=== PATIENT | male | born 1945 | race Caucasian/White ===

== ENCOUNTER → 2016-09-13 | Outpatient (CLI) | payer OTHER | LOC: RAD 08:40 | DX: R10.12 Left upper quadrant pain (principal); R19.02 Left upper quadrant abdominal swelling, mass and lump | CPT/HCPCS: Q9967 ==

== ENCOUNTER → 2016-11-27 | Day surgery (SDC) | payer OTHER | LOC: MSO 08:17 | DX: K29.80 Duodenitis without bleeding (principal); R10.13 Epigastric pain; R10.12 Left upper quadrant pain; E78.5 Hyperlipidemia, unspecified; K21.9 Gastro-esophageal reflux disease without esophagitis; Z86.73 Personal history of transient ischemic attack (TIA), and cerebral infarction without residual deficits; Z86.718 Personal history of other venous thrombosis and embolism; Z79.01 Long term (current) use of anticoagulants; F17.220 Nicotine dependence, chewing tobacco, uncomplicated | CPT/HCPCS: 00740; J7120 ==

== ENCOUNTER 2017-05-16 15:45 | Emergency (ER) | payer OTHER ==
[~2017-05-16] VITALS: Ht 165.1 cm; Wt 161.6 kg
[2017-05-16] MEDS ORDERED: NEURONTIN300 M1 PO (16:17)
[2017-05-16] MEDS ORDERED: NORCO 325 MG-7.1 TAB PO (16:17)
[2017-05-16] MEDS ORDERED: LEVOFLOXACIN750 MG PO (16:17)
[2017-05-16] MEDS ORDERED: COUMADIN 77.5 MG/TAB PO (16:17)
[2017-05-16] MEDS ORDERED: MINOCYCLINE HC100 MG PO (16:18)
[2017-05-16] MEDS ORDERED: CYCLOBENZAPRINE10 M1 PO (16:18)
[2017-05-16] MEDS ORDERED: FUROSEMIDE40 MG (16:18)
[2017-05-16] MEDS ORDERED: LOVASTATIN10 M1 PO (16:18)
[2017-05-16 18:19] LABS: BUN/CREATININE RATIO 23.2 (6.0-26.0); CALCIUM 8.7 mg/dL (8.4-10.2); POTASSIUM 4.2 mmol/L (3.6-5.0)
[2017-05-16 18:20] LABS: EOS # 0.1 (0.04-0.40); EOS % 0.6 % (0.0-4.0); HEMATOCRIT 46.3 % (42.0-52.0); LYMPH# 1.1 (1.50-4.00); MEAN CELL VOLUME 89 fl (78-100); MEAN CORPUSCULAR HEMOGLOBIN 29 pg (27-31); MEAN CORPUSCULAR HGB CONC 32 g/dL (33-37); MEAN PLATELET VOLUME 10.2 fl (7.4-10.4); NEU # 6.9 (1.40-6.50); PLATELET COUNT 156 K/mm3 (130-400); RED BLOOD COUNT 5.19 M/mm3 (4.20-5.60); RED CELL DISTRIBUTION WIDTH 13.7 % (11.5-14.5)
[2017-05-16 19:09] VITALS: BP 173/91
== END 2017-05-16 19:10 | disposition home or self-care (01) ==
LOC: ED 15:45
PROVIDERS: Nurse Practitioner Primary Care
DX: I87.2 Venous insufficiency (chronic) (peripheral) (principal); I25.10 Atherosclerotic heart disease of native coronary artery without angina pectoris; F17.200 Nicotine dependence, unspecified, uncomplicated; Z79.01 Long term (current) use of anticoagulants; E78.00 Pure hypercholesterolemia, unspecified; Z88.1 Allergy status to other antibiotic agents; Z88.0 Allergy status to penicillin; Z88.2 Allergy status to sulfonamides

== ENCOUNTER 2018-04-19 15:25 | Observation (INO) | payer OTHER ==
[~2018-04-19] VITALS: Ht 12.7 cm; Wt 158.1 kg
[~2018-04-19 15:25] MED LIST: COUMADIN 1010 MG/TAB PO; CYCLOBENZAPRINE10 M1 PO; FUROSEMIDE40 MG; LEVOFLOXACIN750 MG PO; LOVASTATIN10 M1 PO; MINOCYCLINE HC100 MG PO; NEURONTIN300 M1 PO; NORCO 325 MG-7.1 TAB PO
[2018-04-19 16:17] LABS: EOS % 0.5 % (0.0-4.0); HEMATOCRIT 53.5 % (42.0-52.0); HEMOGLOBIN 16.3 g/dL (13.5-18.0); LYMPH# 1.4 (1.50-4.00); MEAN CELL VOLUME 96 fl (78-100); MEAN CORPUSCULAR HEMOGLOBIN 29 pg (27-31); MEAN CORPUSCULAR HGB CONC 31 g/dL (33-37); MEAN PLATELET VOLUME 10.7 fl (7.4-10.4); MONO # 0.9 (0.20-0.80); NEU # 5.7 (1.40-6.50); PLATELET COUNT 164 K/mm3 (130-400)
[2018-04-19 16:34] LABS: ALBUMIN 3.6 g/dL (3.5-5.0); CALCIUM 8.8 mg/dL (8.4-10.2); POTASSIUM 4.9 mmol/L (3.6-5.0); TOTAL BILIRUBIN 1.4 mg/dL (0.2-1.3); TOTAL PROTEIN 6.9 g/dL (6.3-8.2)
[2018-04-19] MEDS ORDERED: VITAMIN D33000 UNIT PO (18:22)
[2018-04-19] MEDS ORDERED: SAXENDA3 MG/0.5 M SQ (18:23)
[2018-04-19] MEDS ORDERED: LOVASTATIN10 M1 PO (18:23)
[2018-04-19 19:49] LABS: PROTHROMBIN TIME 29.1 SECONDS (9.0-12.0)
[2018-04-19 20:55] LABS: URINE APPEARANCE HAZY; URINE BILIRUBIN NEGATIVE (NEGATIVE); URINE COLOR YELLOW; URINE GLUCOSE NEGATIVE (NEGATIVE); URINE KETONE NEGATIVE (NEGATIVE); URINE NITRATE NEGATIVE (NEGATIVE); URINE PROTEIN(semi-quant) 2+ mg/dL (NEGATIVE); URINE UROBILINOGEN NORMAL (NORMAL)
[2018-04-19 20:56] LABS: URINE BLOOD TRACE (NEGATIVE); URINE LEUKOCYTE ESTERASE NEGATIVE (NEGATIVE)
[2018-04-19 20:57] LABS: URINE MUCUS PRESENT (NOT PRESENT)
[2018-04-19 22:28] VITALS: BP 109/66
[2018-04-19 23:30] VITALS: BP 116/61
[2018-04-20] MEDS ORDERED: COUMADIN 1010 MG/TAB PO ×2 (01:02→01:03)
[2018-04-20 03:41] VITALS: BP 117/74
[2018-04-20 06:22] VITALS: BP 133/97
[2018-04-20 08:01] LABS: CALCIUM 8.3 mg/dL (8.4-10.2); POTASSIUM 4.5 mmol/L (3.6-5.0)
[2018-04-20 08:32] LABS: HEMOGLOBIN 16.2 g/dL (13.5-18.0); MEAN CELL VOLUME 96 fl (78-100); MEAN CORPUSCULAR HEMOGLOBIN 29 pg (27-31); MEAN CORPUSCULAR HGB CONC 30 g/dL (33-37); MEAN PLATELET VOLUME 11.1 fl (7.4-10.4); PLATELET COUNT 137 K/mm3 (130-400); RED BLOOD COUNT 5.64 M/mm3 (4.20-5.60); RED CELL DISTRIBUTION WIDTH 15.2 % (11.5-14.5); WHITE BLOOD COUNT 9.2 K/mm3 (4.8-10.8)
[2018-04-20 08:54] LABS: LYMPHOCYTE 21 % (20-51); MONOCYTE 9 % (3-10); NEUTROPHILS 70 % (42-75)
[2018-04-20 11:19] VITALS: BP 166/99
[2018-04-20] MEDS ORDERED: PANTOPRAZOLE SO40 MG PO (12:43)
[2018-04-20 13:29] VITALS: BP 139/78
== END 2018-04-20 15:09 | disposition short-term general hospital (02) ==
LOC: ED 15:25 → MED/SURG 21:32
PROVIDERS: Nurse Practitioner Primary Care; ADMIT Family Medicine
DX: J96.20 Acute and chronic respiratory failure, unspecified whether with hypoxia or hypercapnia (principal); E66.2 Morbid (severe) obesity with alveolar hypoventilation; I25.10 Atherosclerotic heart disease of native coronary artery without angina pectoris; I82.409 Acute embolism and thrombosis of unspecified deep veins of unspecified lower extremity; M17.0 Bilateral primary osteoarthritis of knee; M86.671 Other chronic osteomyelitis, right ankle and foot; F17.290 Nicotine dependence, other tobacco product, uncomplicated; R44.2 Other hallucinations; Z90.49 Acquired absence of other specified parts of digestive tract; Z79.01 Long term (current) use of anticoagulants
CPT/HCPCS: A4216; G0378; J0456; J0696; J1940; J7050

== ENCOUNTER 2018-12-08 11:43 | Emergency (ER) | payer OTHER ==
[~2018-12-08] VITALS: Wt 157.1 kg
[~2018-12-08 11:43] MED LIST changes: +PANTOPRAZOLE SO40 MG PO; +SAXENDA3 MG/0.5 M SQ; +VITAMIN D33000 UNIT PO
[2018-12-08 12:24] LABS: EOS # 0.1 (0.04-0.40); EOS % 1.3 % (0.0-4.0); HEMOGLOBIN 15.3 g/dL (13.5-18.0); LYMPH# 1.3 (1.50-4.00); MEAN CELL VOLUME 100 fl (78-100); MEAN CORPUSCULAR HEMOGLOBIN 29 pg (27-31); MEAN PLATELET VOLUME 10.7 fl (7.4-10.4); MONO # 0.7 (0.20-0.80); NEU # 5.5 (1.40-6.50); PLATELET COUNT 143 K/mm3 (130-400); RED CELL DISTRIBUTION WIDTH 15.4 % (11.5-14.5); WHITE BLOOD COUNT 7.7 K/mm3 (4.8-10.8)
[2018-12-08 12:29] LABS: MEAN CORPUSCULAR HGB CONC 29 g/dL (33-37)
[2018-12-08 12:30] LABS: ALBUMIN 3.3 g/dL (3.4-4.8)
[2018-12-08 12:32] LABS: CALCIUM 8.3 mg/dL (8.3-10.5)
[2018-12-08 12:33] LABS: GLUCOSE 104 mg/dL (75-110); TOTAL PROTEIN 6.7 g/dL (6.2-8.1)
[2018-12-08 12:34] LABS: CARBON DIOXIDE 35 mmol/L (23-31)
[2018-12-08 12:35] LABS: TOTAL BILIRUBIN 0.9 mg/dL (0.2-1.2)
[2018-12-08 12:38] LABS: AST-SGOT 18 U/L (5-34)
[2018-12-08 12:40] LABS: ALT/SGPT 9 U/L (0-55)
[2018-12-08 12:41] LABS: ACETAMINOPHEN < 1 ug/mL; ALCOHOL IN-HOUSE < 10 mg/dL (<10)
[2018-12-08 12:46] LABS: TROPONIN-I 0.13 ng/mL (<0.030)
[2018-12-08 12:55] LABS: PARTIAL THROMBOPLASTIN TIME 28.8 SECONDS (21.0-32.0); PROTHROMBIN TIME 27.2 SECONDS (9.0-12.0)
[2018-12-08 13:20] LABS: D-DIMER 2.14 mg/L FEU (0.15-0.50)
[2018-12-08 13:22] LABS: POTASSIUM 5.5 mmol/L (3.5-5.1); SODIUM 141 mmol/L (136-145)
[2018-12-08 15:27] LABS: URINE APPEARANCE HAZY; URINE BILIRUBIN NEGATIVE (NEGATIVE); URINE BLOOD NEGATIVE (NEGATIVE); URINE COLOR DK YELLOW; URINE GLUCOSE NEGATIVE (NEGATIVE); URINE KETONE NEGATIVE (NEGATIVE); URINE LEUKOCYTE ESTERASE NEGATIVE (NEGATIVE); URINE NITRATE NEGATIVE (NEGATIVE); URINE PROTEIN(semi-quant) TRACE mg/dL (NEGATIVE); URINE UROBILINOGEN NORMAL (NORMAL); URINE WBC 0-1 /hpf (0-3)
[2018-12-08 15:28] LABS: URINE MUCUS PRESENT (NOT PRESENT)
[2018-12-08 18:42] VITALS: BP 131/73
== END 2018-12-08 18:42 | disposition short-term general hospital (02) ==
LOC: ED 11:43
PROVIDERS: Family Medicine
DX: J18.1 Lobar pneumonia, unspecified organism (principal); I21.4 Non-ST elevation (NSTEMI) myocardial infarction; I25.10 Atherosclerotic heart disease of native coronary artery without angina pectoris; J44.9 Chronic obstructive pulmonary disease, unspecified; E11.9 Type 2 diabetes mellitus without complications; K21.9 Gastro-esophageal reflux disease without esophagitis; E66.9 Obesity, unspecified; Z79.01 Long term (current) use of anticoagulants; Z88.0 Allergy status to penicillin; Z88.2 Allergy status to sulfonamides; Z88.1 Allergy status to other antibiotic agents; F17.210 Nicotine dependence, cigarettes, uncomplicated
CPT/HCPCS: A4216; J0696; J1650; J1940; J3370; J7050; Q9967

== ENCOUNTER 2019-05-05 15:44 | Emergency (ER) | payer OTHER ==
[2019-05-05] MEDS ORDERED: WARFARIN SOD5 MG PO (16:36)
[2019-05-05] MEDS ORDERED: PRILOSEC 20MG20 MG PO (16:36)
[2019-05-05] MEDS ORDERED: FLUTICASONE-SA1 EAC5 IH (16:36)
[2019-05-05] MEDS ORDERED: FLOMAX0.4 MG PO (16:37)
[2019-05-05 16:40] LABS: HEMATOCRIT 45.2 % (42.0-52.0); HEMOGLOBIN 13.7 g/dL (13.5-18.0); MEAN CELL VOLUME 95 fl (78-100); MEAN CORPUSCULAR HEMOGLOBIN 29 pg (27-31); MEAN CORPUSCULAR HGB CONC 30 g/dL (33-37); MEAN PLATELET VOLUME 10.5 fl (7.4-10.4); PLATELET COUNT 137 K/mm3 (130-400); RED BLOOD COUNT 4.76 M/mm3 (4.20-5.60); RED CELL DISTRIBUTION WIDTH 14.9 % (11.5-14.5); WHITE BLOOD COUNT 19.5 K/mm3 (4.8-10.8)
[2019-05-05 16:45] LABS: ALBUMIN 3.6 g/dL (3.4-4.8); POTASSIUM 4.1 mmol/L (3.5-5.1); SODIUM 137 mmol/L (136-145)
[2019-05-05 16:47] LABS: CALCIUM 9.8 mg/dL (8.3-10.5)
[2019-05-05 16:48] LABS: GLUCOSE 115 mg/dL (75-110); TOTAL PROTEIN 7.4 g/dL (6.2-8.1)
[2019-05-05 16:49] LABS: CARBON DIOXIDE 30 mmol/L (23-31)
[2019-05-05 16:50] LABS: TOTAL BILIRUBIN 2.1 mg/dL (0.2-1.2)
[2019-05-05 16:53] LABS: AST-SGOT 15 U/L (5-34)
[2019-05-05 16:54] LABS: ALT/SGPT 14 U/L (0-55)
[2019-05-05 16:55] LABS: LIPASE < 4 U/L (8-78)
[2019-05-05 17:00] LABS: LYMPHOCYTE 7 % (20-51); MONOCYTE 13 % (3-10); NEUTROPHILS 79 % (42-75)
[2019-05-05 20:40] VITALS: BP 142/70
[2019-05-05 20:44] LABS: TROPONIN-I < 0.03 ng/mL (<0.030)
== END 2019-05-05 20:40 | disposition short-term general hospital (02) ==
LOC: ED 15:44
PROVIDERS: Nurse Practitioner Primary Care
DX: K83.09 Other cholangitis (principal); K86.9 Disease of pancreas, unspecified; I25.10 Atherosclerotic heart disease of native coronary artery without angina pectoris; K21.9 Gastro-esophageal reflux disease without esophagitis; I73.9 Peripheral vascular disease, unspecified; Z79.01 Long term (current) use of anticoagulants; Z86.73 Personal history of transient ischemic attack (TIA), and cerebral infarction without residual deficits; Z86.718 Personal history of other venous thrombosis and embolism; Z90.49 Acquired absence of other specified parts of digestive tract
CPT/HCPCS: J2543; Q9967

== ENCOUNTER → 2019-07-16 | Outpatient (CLI) | payer OTHER ==
[~2019-07-16] MED LIST changes: +FLOMAX0.4 MG PO; +FLUTICASONE-SA1 EAC5 IH; +PRILOSEC 20MG20 MG PO; +WARFARIN SOD5 MG PO
[2019-07-16 11:20] LABS: HEMATOCRIT 39.6 % (42.0-52.0); MEAN PLATELET VOLUME 10.2 fl (7.4-10.4); RED BLOOD COUNT 4.25 M/mm3 (4.20-5.60); WHITE BLOOD COUNT 8.7 K/mm3 (4.8-10.8)
[2019-07-16 11:24] LABS: POTASSIUM 4.1 mmol/L (3.5-5.1)
[2019-07-16 11:25] LABS: CALCIUM 8.8 mg/dL (8.3-10.5)
[2019-07-16 11:26] LABS: TOTAL PROTEIN 7.3 g/dL (6.2-8.1)
[2019-07-16 11:28] LABS: TOTAL BILIRUBIN 1.1 mg/dL (0.2-1.2)
== END ==
LOC: LAB 10:40
PROVIDERS: Internal Medicine
DX: Z01.89 Encounter for other specified special examinations (principal)

== ENCOUNTER → 2019-07-22 | Outpatient (CLI) | payer OTHER ==
[2019-07-22 10:34] LABS: HEMATOCRIT 39.3 % (42.0-52.0); HEMOGLOBIN 11.8 g/dL (13.5-18.0); MEAN CELL VOLUME 93 fl (78-100); MEAN CORPUSCULAR HEMOGLOBIN 28 pg (27-31); MEAN CORPUSCULAR HGB CONC 30 g/dL (33-37); MEAN PLATELET VOLUME 10.3 fl (7.4-10.4); PLATELET COUNT 223 K/mm3 (130-400); RED BLOOD COUNT 4.24 M/mm3 (4.20-5.60); RED CELL DISTRIBUTION WIDTH 14.1 % (11.5-14.5); WHITE BLOOD COUNT 11.1 K/mm3 (4.8-10.8)
[2019-07-22 10:55] LABS: LYMPHOCYTE 7 % (20-51); MONOCYTE 1 % (3-10); NEUTROPHILS 92 % (42-75)
== END ==
LOC: LAB 09:46
PROVIDERS: Internal Medicine Medical Oncology
DX: C25.2 Malignant neoplasm of tail of pancreas (principal)

== ENCOUNTER → 2019-07-29 | Outpatient (CLI) | payer OTHER ==
[2019-07-29 10:34] LABS: HEMATOCRIT 38.3 % (42.0-52.0); HEMOGLOBIN 11.5 g/dL (13.5-18.0); MEAN CELL VOLUME 91 fl (78-100); MEAN CORPUSCULAR HEMOGLOBIN 27 pg (27-31); MEAN CORPUSCULAR HGB CONC 30 g/dL (33-37); MEAN PLATELET VOLUME 9.8 fl (7.4-10.4); PLATELET COUNT 150 K/mm3 (130-400); RED CELL DISTRIBUTION WIDTH 13.9 % (11.5-14.5); WHITE BLOOD COUNT 8.4 K/mm3 (4.8-10.8)
[2019-07-29 10:54] LABS: LYMPHOCYTE 19 % (20-51); NEUTROPHILS 81 % (42-75)
== END ==
LOC: LAB 10:06
PROVIDERS: Internal Medicine Medical Oncology
DX: C25.2 Malignant neoplasm of tail of pancreas (principal)